=== PATIENT | female | born 1950 | race Caucasian/White ===

== ENCOUNTER → 2017-08-07 10:00 | Outpatient (CLI) | payer MEDICARE, MEDICAID, SELFPAY ==
--- NOTE | 2017-08-07 | DI.RAD.S_ITS ---
PROCEDURE: XR CHEST 2V INDICATIONS: PNEUMONIA TECHNIQUE: 2 views of the chest were acquired. COMPARISON: 07/27/2017 FINDINGS: Surgical changes and devices: None. Lungs and pleura: No pleural effusions or pneumothorax. There is minimal patchy radiodensity in the right upper lobe consistent with residual of prior pneumonia. Pulmonary vascularity is normal. Mediastinum: Mediastinal contours are normal. Heart size is normal. Bones and chest wall: No suspicious bony abnormalities. Thoracic spondylosis. Soft tissues appear unremarkable. IMPRESSION: 1. Near-complete resolution of prior right upper lobe pneumonia and interval resolution of mild pulmonary edema or diffuse interstitial infiltrate. Further followup in 6-8 weeks is suggested to ensure complete resolution. Dictated by: Poli Fong M.D. on 08/07/2017 at 10:31 Approved by: Poli Fong M.D. on 08/07/2017 at 10:34
== END ==
PROVIDERS: Family Provider Nurse Practitioner Family; PCP Nurse Practitioner Family; Visit Provider Nurse Practitioner Family
DX: J18.9 Pneumonia, unspecified organism (principal)
CPT/HCPCS: 71046

== ENCOUNTER → 2017-10-05 10:23 | Outpatient (CLI) | payer MEDICARE, MEDICAID, SELFPAY ==
--- NOTE | 2017-10-05 | DI.RAD.S_ITS ---
PROCEDURE: XR CHEST 2V INDICATIONS: pneumonia TECHNIQUE: 2 views of the chest were acquired. COMPARISON: [facility], CR, XR CHEST 1V, 07/27/2017, 19:54. [facility], CR, XR CHEST 2V, 08/07/2017, 10:05. FINDINGS: Surgical changes and devices: None. Lungs and pleura: No pleural effusions or pneumothorax. Ill-defined right upper lobe pulmonary densities superior unchanged and mild bilateral perihilar interstitial prominence is again noted. No septal lines. Mediastinum: Mediastinal contours are normal. Heart size is normal. Bones and chest wall: No suspicious bony abnormalities. Thoracic spondylosis. Soft tissues appear unremarkable. IMPRESSION: Incomplete resolution of patchy right upper lobe pulmonary densities. Noncontrast CT chest suggested for further evaluation. Dictated by: Poli Fong M.D. on 10/05/2017 at 10:58 Approved by: Poli Fogn M.D. on 10/05/2017 at 11:01
== END ==
PROVIDERS: Family Provider Nurse Practitioner Family; PCP Nurse Practitioner Family; Visit Provider Nurse Practitioner Family
DX: J18.9 Pneumonia, unspecified organism (principal)
CPT/HCPCS: 71046

== ENCOUNTER → 2019-05-23 14:27 | Outpatient (CLI) | payer MEDICARE, MEDICAID, SELFPAY ==
[2019-05-23 15:34] LABS: Add Manual Diff / Slide Review NO; Basophils Absolute Auto 100 /uL (0-100); Basophils Percent Auto 1.3 % (0-2); Eosinophils Absolute Auto 100 /uL (0-450); Eosinophils Percent Auto 2.5 % (2-4); Hematocrit 38.4 % (36-46); Hemoglobin 12.8 g/dL (12.0-16.0); Lymphocytes Absolute Auto 1600 /uL (1100-4500); Lymphocytes Percent Auto 33.4 % (25-40); Mean Corpuscular HGB Conc 33.4 % (30-36); Mean Corpuscular Hemoglobin 31.9 PG (26-34); Mean Corpuscular Volume 95.8 fL (80-100); Monocytes Absolute Auto 300 /uL (0-900); Neutrophils Absolute Auto 2700 /uL (1500-7000); Neutrophils Percent Auto 55.8 % (50-75); Platelet Count 254 X10^3/uL (150-400); Red Blood Cell Count 4.01 X10^6/uL (4.0-5.2); Red Cell Distribution Width 13.6 % (11.6-14.8); White Blood Cell Count 4.8 X10^3/uL (4.5-11.0)
[2019-05-23 15:55] LABS: Alanine Aminotransferase 15 IU/L (<35); Albumin 4.4 g/dL (3.5-5.0); Albumin Globulin Ratio 1.3 (1.0-2.8); Alkaline Phosphatase 80 U/L (38-126); Aspartate Aminotransferase 22 IU/L (14-36); Bilirubin Total 0.4 mg/dL (0.2-1.3); Blood Urea Nitrogen 21 mg/dL (7-17); Calcium 9.4 mg/dL (8.4-10.2); Carbon Dioxide 27 mmol/L (22-32); Chloride 104 mmol/L (98-107); Cholesterol 200 mg/dL (140-199); Estimated Glomerular Filt Rate 55.1 mL/min (>60); Globulin 3.5 g/dL (1.7-4.1); Glucose 120 mg/dL (80-110); HDL Cholesterol 42 mg/dL (40-60); HEMOLYSIS < 15 (0-50); LDL Cholesterol Calculated 125 mg/dL (<100); Potassium 4.1 mmol/L (3.4-5.1); Sodium 141 mmol/L (137-145); Total Protein 7.9 g/dL (6.3-8.2); Triglycerides 164 mg/dL (35-150)
[2019-05-23 16:33] LABS: Thyroid Stimulating Hormone 1.47 uIU/mL (0.47-4.68)
== END ==
PROVIDERS: Family Provider Nurse Practitioner Family; PCP Nurse Practitioner Family; Referring Provider Nurse Practitioner Family; Visit Provider Nurse Practitioner Family
DX: R53.83 Other fatigue (principal); R60.9 Edema, unspecified; I35.8 Other nonrheumatic aortic valve disorders; E03.9 Hypothyroidism, unspecified; R06.00 Dyspnea, unspecified
CPT/HCPCS: 36415; 80053; 80061; 84443; 85025

== ENCOUNTER → 2020-06-04 08:11 | Outpatient (CLI) | payer MEDICARE, MEDICAID, SELFPAY ==
[2020-06-04] MEDS: COVID-19 VACC, Ad26(JANSSEN)/PF 0.5 ML IM (08:20)
== END ==
PROVIDERS: Family Provider Nurse Practitioner Family; PCP Registered Nurse Diabetes Educator; Visit Provider Internal Medicine
DX: Z23 Encounter for immunization (principal)
CPT/HCPCS: 0031A; 91303

== ENCOUNTER → 2023-02-24 07:25 | Outpatient (CLI) | payer MEDICARE, MEDICAID, SELFPAY ==
[2023-02-24 08:12] LABS: Add Manual Diff / Slide Review NO; Basophils Absolute Auto 200 /uL (0-100); Basophils Percent Auto 3.7 % (0-2); Eosinophils Absolute Auto 100 /uL (0-450); Eosinophils Percent Auto 2.9 % (2-4); Hematocrit 38.5 % (36-46); Hemoglobin 12.9 g/dL (12.0-16.0); Lymphocytes Absolute Auto 1300 /uL (1100-4500); Lymphocytes Percent Auto 31.4 % (25-40); Mean Corpuscular HGB Conc 33.4 % (30-36); Mean Corpuscular Hemoglobin 31.9 PG (26-34); Mean Corpuscular Volume 95.6 fL (80-100); Monocytes Absolute Auto 400 /uL (0-900); Monocytes Percent Auto 8.4 % (3-14); Neutrophils Absolute Auto 2200 /uL (1500-7000); Neutrophils Percent Auto 53.6 % (50-75); Platelet Count 247 X10^3/uL (150-400); Red Blood Cell Count 4.03 X10^6/uL (4.0-5.2); White Blood Cell Count 4.2 X10^3/uL (4.5-11.0)
[2023-02-24 08:20] LABS: Hemoglobin A1C% w Est Avg Glu 5.6 % (4.0-6.0)
[2023-02-24 08:34] LABS: Alanine Aminotransferase 24 IU/L (<35); Albumin 4.2 g/dL (3.5-5.0); Albumin Globulin Ratio 1.4 (1.0-2.8); Alkaline Phosphatase 73 U/L (38-126); Aspartate Aminotransferase 27 IU/L (14-36); BUN Creatinine Ratio 23.1 (6-22); Bilirubin Total 0.6 mg/dL (0.2-1.3); Blood Urea Nitrogen 21 mg/dL (7-17); Calcium 9.5 mg/dL (8.4-10.2); Carbon Dioxide 26 mmol/L (22-32); Chloride 102 mmol/L (98-107); Cholesterol 216 mg/dL (140-199); Estimated Glomerular Filt Rate > 60 mL/min (>60); Globulin 3.1 g/dL (1.7-4.1); Glucose 104 mg/dL (80-110); HDL Cholesterol 50 mg/dL (40-60); HEMOLYSIS < 15 (0-50); LDL Cholesterol Calculated 145 mg/dL (<100); Potassium 4.5 mmol/L (3.4-5.1); Sodium 138 mmol/L (137-145); Total Protein 7.3 g/dL (6.3-8.2); Triglycerides 104 mg/dL (35-150)
[2023-02-24 09:03] LABS: TSH w/ Reflex to FT4 1.74 uIU/mL (0.47-4.68)
[2023-02-24 11:34] LABS: Creatinine Urine Random 188.7 mg/dL
[2023-02-24 11:37] LABS: Microalbumi Creatinin Ratio Ur 3.7 ug/mg CR (<30); Microalbumin Urine Random 0.7 mg/dL (0-1.6)
== END ==
PROVIDERS: Family Provider Nurse Practitioner Family; PCP Registered Nurse Diabetes Educator; Referring Provider Registered Nurse Diabetes Educator; Visit Provider Registered Nurse Diabetes Educator
DX: I10 Essential (primary) hypertension (principal); R73.01 Impaired fasting glucose; E78.5 Hyperlipidemia, unspecified; G93.39 Other post infection and related fatigue syndromes; R94.4 Abnormal results of kidney function studies
CPT/HCPCS: 36415; 80053; 80061; 82043; 82570; 83036; 84443; 85025

== ENCOUNTER 2023-09-11 09:45 | Outpatient (RCR) | payer MEDICARE, MEDICAID, SELFPAY ==
--- NOTE | 2023-07-07 16:45 | PT.OPPOC ---
Physical, Occupational & Speech Therapy At [facility] Current Diagnoses Pain in other specified joint (07/07/23) Low back pain, unspecified (07/07/23) Muscle weakness (generalized) (07/07/23) Stress incontinence (female) (male) (07/07/23) Urge incontinence (07/07/23) Visit Care Team Role Provider Type OCTAVIA Rdz Family Provider Non-Staff Specialty: Medical Address: [address] [place] [address], [facility] [address], [place], [address] Email: OCTAVIA Harmon Attending Provider Advanced Client Account Specialist Primary Care Provider Referring Provider Specialty: Medical Address: [address] [place] [address], [id number] Email: [email or web address] Plan Of Care PT-OP-T Assessment and Plan Start: 06/27/23 18:29 Freq: Status: Active Protocol: Document 07/07/23 10:38 LRN (Rec: 07/07/23 11:23 LRN [id number]) Physical Therapy Assessment Rehab Potential Rehabilitation Potential Good Evaluation Complexity Number of Personal Factors/Comorbidities 3 or More Number of Body Systems Impaired 4 or More Clinical Presentation at Evaluation Evolving Impairments Impairments Activity Tolerance,Pain, Posture,ROM,Soft Tissue Mobility,Strength,Transfers Other Impairments Urge Urinary leakage with temperature change warm to cold, opening refrigerator, walking inside to outside the house. Goals Low back pain Impairment Low back pain Impairment LBP rated 3/10, and pt is not able to maintain core rotational stability with LE movements. Short Term Goal (STG) Pt will be educated in proper sit/stand posture and LB mobility exercises. STG Duration 6 wks-08/18/23 Manager Hi Goal (LTG) Improve core stability/ strength with pt able to walk from inside to outside the house while maintaining urinary continence with walking. LTG Duration 12 wks-09/29/23 Three Impairment Aggrevator urinary incontinence (changes in temperature) Short Term Goal (STG) Pt will be educated in urge deference technique. STG Duration 1 wk-07/14/23 Half-Way Goal (LTG) Pt will be able to delay urination until she can sit to void, when walking into a different temperature room in her house. LTG Duration 12 wks-09/29/23 Two Impairment PF deep muscle weakness (2/5) Impairment Endurance hold of 3 secs before starting to fatigue. Short Term Goal (STG) Improve PF endurance with ability to hold PF contraction 5-6 secs. STG Duration 6 wks-08/18/23 Half-Way Goal (LTG) Improve PF endurance with ability to hold PF contraction 10 secs and will be able to open her refrigerator door and walk to the bathroom without urinary leakage. LTG Duration 12 wks-09/29/23 One Impairment Pt lacks an independent self care HEP. Short Term Goal (STG) Pt educated in proper transfers to lessen core abdominal pressure. STG Duration 6 wks-08/18/23 Manager Hi Goal (LTG) Pt will be independent in a self care HEP for PF strengthening. LTG Duration 12 wks-09/29/23 Assessment Summary Assessment Pt is a 72 yo female who presents with PF weakness and a rectocele (grade 3), and cystocele, decreased core/hip strength and mobility. She tends to breath hold with transfers and is not able to perform a proper deep breath; therefore has poor core pressure management. She has had some relief her her urgency with temperature changes with back treatments; therefore correcting for back pain will probably be beneficial in improving her level of continence. Her rectocele is not bulging out of vaginal canal in supine or standing or with cough at this time. She is able to draw her bladder and rectal tissues upward with a PF contraction. She denies a feeling of falling out or of GI involvement (constipation). She must have had GI difficulties in the past because she has a squatty potty and has understanding of best positioning for bowel movement voiding. It is expected the the pt rehab will be prolonged due to the chronicity of her dysfunction. The patient will benefit from skilled physical therapy to achieve the above stated goals. Physical Therapy Plan Frequency and Duration Frequency of Treatment 1x/Week Duration of treatment (weeks) 12 Plan of Care Start Date 07/07/23 Plan of Care End Date 09/29/23 Therapeutic Interventions Therapeutic Interventions Home Exercise Program,Manual Therapy,Neuromuscular Re- education,Self-Care/Home Management,Soft Tissue Mobilization,Therapeutic Activities,Therapeutic Exercises Modalities Electric Stimulation Next Visit Focus/Plan Next Note Type Treatment Note Next Visit Plan Next: Education in bladder retraining with urge deference technique, proper deep breathing, further assess ( prone) LBP/check hip ext. reduction of intra-abdominal pressure with transfers and ADLs. Exers: proper Kegel (on wedge ) long holds, without use of substitute muscles, core strengthening (focus on rotation), normalize hip strength symmetry. Manual: Reduce LBP. Modalities if needed. POC: Pt education, Manual therapy. ?Biofeedback with vaginal sensor. Therapeutic Exercises, Therapeutic Activities, Neuromuscular Reeducation. Plan of Care Dates Plan of Care Start Date 07/07/23 Plan of Care End Date 09/29/23 Electronically Signed by: Viola De Leon, PT 07/07/23 9036 If you are in agreement with this Plan of Care, please return a signed and dated copy. I have reviewed this Plan of Care and certify that the skilled therapy services above are required to meet the patient?s needs. Physician Signature Date Printed Name and Credentials Clinical Instructor Signature Printed Name and Credentials
--- NOTE | 2023-07-07 17:18 | PT.OIE ---
Current Diagnoses Pain in other specified joint (07/07/23) Low back pain, unspecified (07/07/23) Muscle weakness (generalized) (07/07/23) Stress incontinence (female) (male) (07/07/23) Urge incontinence (07/07/23) Past Medical History (Last Reviewed 05/12/23 @ 15:34 by OCTAVIA Harmon) Acquired involutional ptosis of both eyelids Dyslipidemia Essential hypertension Hip pain Impaired fasting blood sugar Low back pain Obesity Other low back pain Recurrent cold sores Visit Care Team Role Provider Type OCTAVIA Rdz Family Provider Non-Staff Specialty: Medical Address: [address] [place] [address], [facility] [address], [place], [address] Email: OCTAVIA Harmon Attending Provider Advanced Group Account Director Primary Care Provider Referring Provider Specialty: Medical Address: [address] [place] [address], [address] Email: [email or web address] Physical Therapy Initial Evaluation PT-OP-A Visit Information Start: 06/27/23 18:29 Freq: Status: Active Protocol: Document 07/07/23 10:38 LRN (Rec: 07/07/23 11:23 CLARY [id number]) Out-Patient Physical Therapy Visit Information Visit Information Visit Type Initial Evaluation Visit Start Time 10:38 Visit Stop Time 11:20 Visit Number 1 Evaluation Information Evaluation Date 07/07/23 Precautions Precautions Per intake form: LATEX ALLERGY (if on for extended period of time), arthritis, depression, dizziness, hep B, L eye PVD, cannabis smoker. PT-OP-B Current Condition Start: 06/27/23 18:29 Freq: Status: Active Protocol: Document 07/07/23 10:38 LRN (Rec: 07/07/23 11:23 LRN [id number]) Current Condition History of Current Condition Onset Date 1 month worsened Current Complaints Having more urinary leakage History of Current Condition Pt reports having urinary leakage for 10 or more years, but in the past month has had worsening of urinary leakage when walking from inside to outside of house or opening the refridgerator door has to urinate immediately. Has had accupuncture for back pain and for awhile was helping with urgent bladder for one week at a time but last time helped for only a few days. Won't wear urinary pads because doesn't like how it bunches up . Instead of panties wears leggings. Pt reports living independently in bottom 1/2 of daughters house. Prior Treatments and Tests Has done intermittent Kegels, doesn't remember who taught her. Treatment Goals Patient/Caregiver Goals Pt goal is to be able to improve maintain urinary continence with opening refig door, walking into a different temp room, or going from inside to outside the house. Personal Factors Other Personal Factors That May Effect LATEX ALLERGY (if on for Therapy/Recovery extended period of time), arthritis, depression, dizziness. PT-OP-C Subjective Start: 06/27/23 18:29 Freq: Status: Active Protocol: Document 07/07/23 10:38 LRN (Rec: 07/07/23 11:23 LRN [id number]) Patient Questionnaires Pelvic Pain and Urgency/Frequency Patient Symptom Scale Pelvic Pain Score 9 OP-PT Pain Assessment Pain Assessment Grid Paper Pain Assessment Grid Completed Yes Location Lateral hips Pain Location Details Lateral hips Intensity 3 Scale Used Numeric (0 - 10) Low back Pain Location Details Lower lumbar and sacral area Intensity 3 Scale Used Numeric (0 - 10) PT-OP-I Pelvic Floor Start: 06/27/23 18:29 Freq: Status: Active Protocol: Document 07/07/23 10:38 LRN (Rec: 07/07/23 11:23 LRN [id number]) Pelvic Floor Assessment Urine Urinary Symptoms Falling Out Feeling/Heavy Other Urinary Symptoms Several years ago felt bladder falling out of vagina, couldn 't afford to have it fixed. Leakage Size Large Leaks Per Day 3-5 Voiding Frequency 6-8x/day Nocturia 1-2x Pads Used In 24 Hours Doesn't use pads. Bowel Other Bowel Symptoms Denies bowel symptoms. Notes normal stool Bowel Movement Frequency 1-2x/day Pelvic Clock Pelvic Clock Other Pelvic Clock 6, tenderness externally. Prolapse Cystocele Grade 2 Urethrocele Grade 3 Perineal Descent Bearing Present Contraction Ability Voluntary Contraction Moderate Voluntary Relaxation Moderate Manual Muscle Testing Left 2 Manual Muscle Testing Right 2 Manual Muscle Testing Anterior 2 Manual Muscle Testing Posterior 2 Muscle Endurance (Seconds) 3 Number of Quick Contractions In 10 9 Seconds Comments Pelvic Floor Comments Superficial PF muscle strength is 3/5 Deep PF muscle strength is 1-2 /5. PT-OP-J Posture/Palpation/Skin Start: 06/27/23 18:29 Freq: Status: Active Protocol: Document 07/07/23 10:38 LRN (Rec: 07/07/23 11:23 LRN [id number]) Posture Evaluation Position Standing Head/C-Spine Posture Forward Head T-Spine Posture Increased Kyphosis L-Spine Posture Decreased Lordosis,Shifted Left Shoulder Posture (L) Rounded,(L) Forward Pelvis Posture Anteriorly Tilted,(L) Iliac Crest Superior Comments Posture Comments Lumbar spine shifted left at L5-S1. PT-OP-K Range of Motion Start: 06/27/23 18:29 Freq: Status: Active Protocol: Document 07/07/23 10:38 LRN (Rec: 07/07/23 11:23 LRN [id number]) Lumbar Spine Range of Motion Lumbar Spine Active Degrees Testing Position Standing Flexion 90 Extension 22 Rotation Left 5 Rotation Right 5 Lateral Flexion Left 18 Lateral Flexion Right 13 Hip Goniometric Range of Motion Hip Right Passive Testing Position Supine Internal Rotation 45 External Rotation 65 Left Passive Testing Position Supine Internal Rotation 40 External Rotation 55 PT-OP-M Strength Start: 06/27/23 18:29 Freq: Status: Active Protocol: Document 07/07/23 10:38 LRN (Rec: 07/07/23 11:23 LRN [id number]) Hip Strength Hip Manual Muscle Testing Right Flexion (L2) 4 Good Abduction 3 Fair Adduction 2- Poor- External Rotation 5 Normal Internal Rotation 5 Normal Comments Strength is 5/5 except as indicated above. Left Flexion (L2) 4+ Good+ Abduction 2 Poor Adduction 2 Poor External Rotation 3 Fair Internal Rotation 5 Normal Comments Strength is 5/5 except as indicated above. PT-OP-Q Treatments Start: 06/27/23 18:29 Freq: Status: Active Protocol: Document 07/07/23 10:38 LRN (Rec: 07/07/23 11:23 LRN [id number]) Self-Care/Home Management Treatment Education Patient Education Home Exercise Program Other Education Discussed results of evaluation, goals, and plan of care (POC) with pt, discussed attendance/cx/dns policy; pt agreeable to goals, attendance /cx/dns policy and POC. Activities Self-Care/Home Management Activities Issued & reviewed HEP: Yoav ex's (pillows under hips) and discussed exercise Long Holds and Aggravators. PT-OP-T Assessment and Plan Start: 06/27/23 18:29 Freq: Status: Active Protocol: Document 07/07/23 10:38 LRN (Rec: 07/07/23 11:23 LRN [id number]) Physical Therapy Assessment Rehab Potential Rehabilitation Potential Good Evaluation Complexity Number of Personal Factors/Comorbidities 3 or More Number of Body Systems Impaired 4 or More Clinical Presentation at Evaluation Evolving Impairments Impairments Activity Tolerance,Pain, Posture,ROM,Soft Tissue Mobility,Strength,Transfers Other Impairments Urge Urinary leakage with temperature change warm to cold, opening refrigerator, walking inside to outside the house. Goals Low back pain Impairment Low back pain Impairment LBP rated 3/10, and pt is not able to maintain core rotational stability with LE movements. Short Term Goal (STG) Pt will be educated in proper sit/stand posture and LB mobility exercises. STG Duration 6 wks-08/18/23 Private Duty Aide Goal (LTG) Improve core stability/ strength with pt able to walk from inside to outside the house while maintaining urinary continence with walking. LTG Duration 12 wks-09/29/23 Three Impairment Aggrevator urinary incontinence (changes in temperature) Short Term Goal (STG) Pt will be educated in urge deference technique. STG Duration 1 wk-07/14/23 Private Duty Aide Goal (LTG) Pt will be able to delay urination until she can sit to void, when walking into a different temperature room in her house. LTG Duration 12 wks-09/29/23 Two Impairment PF deep muscle weakness (2/5) Impairment Endurance hold of 3 secs before starting to fatigue. Short Term Goal (STG) Improve PF endurance with ability to hold PF contraction 5-6 secs. STG Duration 6 wks-08/18/23 Private Duty Aide Goal (LTG) Improve PF endurance with ability to hold PF contraction 10 secs and will be able to open her refrigerator door and walk to the bathroom without urinary leakage. LTG Duration 12 wks-09/29/23 One Impairment Pt lacks an independent self care HEP. Short Term Goal (STG) Pt educated in proper transfers to lessen core abdominal pressure. STG Duration 6 wks-08/18/23 Private Duty Aide Goal (LTG) Pt will be independent in a self care HEP for PF strengthening. LTG Duration 12 wks-09/29/23 Assessment Summary Assessment Pt is a 72 yo female who presents with PF weakness and a rectocele (grade 3), and cystocele, decreased core/hip strength and mobility. She tends to breath hold with transfers and is not able to perform a proper deep breath; therefore has poor core pressure management. She has had some relief her her urgency with temperature changes with back treatments; therefore correcting for back pain will probably be beneficial in improving her level of continence. Her rectocele is not bulging out of vaginal canal in supine or standing or with cough at this time. She is able to draw her bladder and rectal tissues upward with a PF contraction. She denies a feeling of falling out or of GI involvement (constipation). She must have had GI difficulties in the past because she has a squatty potty and has understanding of best positioning for bowel movement voiding. It is expected the the pt rehab will be prolonged due to the chronicity of her dysfunction. The patient will benefit from skilled physical therapy to achieve the above stated goals. Physical Therapy Plan Frequency and Duration Frequency of Treatment 1x/Week Duration of treatment (weeks) 12 Plan of Care Start Date 07/07/23 Plan of Care End Date 09/29/23 Therapeutic Interventions Therapeutic Interventions Home Exercise Program,Manual Therapy,Neuromuscular Re- education,Self-Care/Home Management,Soft Tissue Mobilization,Therapeutic Activities,Therapeutic Exercises Modalities Electric Stimulation Next Visit Focus/Plan Next Note Type Treatment Note Next Visit Plan Next: Education in bladder retraining with urge deference technique, proper deep breathing, further assess ( prone) LBP/check hip ext. reduction of intra-abdominal pressure with transfers and ADLs. Exers: proper Kegel (on wedge ) long holds, without use of substitute muscles, core strengthening (focus on rotation), normalize hip strength symmetry. Manual: Reduce LBP. Modalities if needed. POC: Pt education, Manual therapy. ?Biofeedback with vaginal sensor. Therapeutic Exercises, Therapeutic Activities, Neuromuscular Reeducation.
--- NOTE | 2023-07-14 12:24 | PT.OTN ---
Current Diagnoses Pain in other specified joint (07/14/23) Low back pain, unspecified (07/14/23) Muscle weakness (generalized) (07/14/23) Stress incontinence (female) (male) (07/14/23) Urge incontinence (07/14/23) Physical Therapy Treatment Note PT-OP-A Visit Information Start: 06/27/23 18:29 Freq: Status: Active Protocol: Document 07/14/23 11:23 LRN (Rec: 07/14/23 12:19 LRN [id number]) Out-Patient Physical Therapy Visit Information Visit Information Visit Type Treatment Note Visit Start Time 11:23 Visit Stop Time 12:04 Visit Number 2 Evaluation Information Evaluation Date 07/07/23 Precautions Precautions Per intake form: LATEX ALLERGY (if on for extended period of time), arthritis, depression, dizziness, hep B, L eye PVD, cannabis smoker. PT-OP-B Current Condition Start: 06/27/23 18:29 Freq: Status: Active Protocol: Document 07/07/23 10:38 LRN (Rec: 07/07/23 11:23 LRN [id number]) Current Condition History of Current Condition Onset Date 1 month worsened Current Complaints Having more urinary leakage History of Current Condition Pt reports having urinary leakage for 10 or more years, but in the past month has had worsening of urinary leakage when walking from inside to outside of house or opening the refridgerator door has to urinate immediately. Has had accupuncture for back pain and for awhile was helping with urgent bladder for one week at a time but last time helped for only a few days. Won't wear urinary pads because doesn't like how it bunches up . Instead of panties wears leggings. Pt reports living independently in bottom 1/2 of daughters house. Prior Treatments and Tests Has done intermittent Kegels, doesn't remember who taught her. Treatment Goals Patient/Caregiver Goals Pt goal is to be able to improve maintain urinary continence with opening refig door, walking into a different temp room, or going from inside to outside the house. Personal Factors Other Personal Factors That May Effect LATEX ALLERGY (if on for Therapy/Recovery extended period of time), arthritis, depression, dizziness. PT-OP-C Subjective Start: 06/27/23 18:29 Freq: Status: Active Protocol: Document 07/14/23 11:23 LRN (Rec: 07/14/23 12:19 LRN [id number]) OP-PT Subjective Patient Comments Patient Comments Improvement in urgency with Accupuncture for LB 2 days ago . Also noticed improvement with Kegels. PT-OP-I Pelvic Floor Start: 06/27/23 18:29 Freq: Status: Active Protocol: Document 07/07/23 10:38 LRN (Rec: 07/07/23 11:23 LRN [id number]) Pelvic Floor Assessment Urine Urinary Symptoms Falling Out Feeling/Heavy Other Urinary Symptoms Several years ago felt bladder falling out of vagina, couldn 't afford to have it fixed. Leakage Size Large Leaks Per Day 3-5 Voiding Frequency 6-8x/day Nocturia 1-2x Pads Used In 24 Hours Doesn't use pads. Bowel Other Bowel Symptoms Denies bowel symptoms. Notes normal stool Bowel Movement Frequency 1-2x/day Pelvic Clock Pelvic Clock Other Pelvic Clock 6, tenderness externally. Prolapse Cystocele Grade 2 Urethrocele Grade 3 Perineal Descent Bearing Present Contraction Ability Voluntary Contraction Moderate Voluntary Relaxation Moderate Manual Muscle Testing Left 2 Manual Muscle Testing Right 2 Manual Muscle Testing Anterior 2 Manual Muscle Testing Posterior 2 Muscle Endurance (Seconds) 3 Number of Quick Contractions In 10 9 Seconds Comments Pelvic Floor Comments Superficial PF muscle strength is 3/5 Deep PF muscle strength is 1-2 /5. PT-OP-J Posture/Palpation/Skin Start: 06/27/23 18:29 Freq: Status: Active Protocol: Document 07/07/23 10:38 LRN (Rec: 07/07/23 11:23 LRN [id number]) Posture Evaluation Position Standing Head/C-Spine Posture Forward Head T-Spine Posture Increased Kyphosis L-Spine Posture Decreased Lordosis,Shifted Left Shoulder Posture (L) Rounded,(L) Forward Pelvis Posture Anteriorly Tilted,(L) Iliac Crest Superior Comments Posture Comments Lumbar spine shifted left at L5-S1. PT-OP-K Range of Motion Start: 06/27/23 18:29 Freq: Status: Active Protocol: Document 07/07/23 10:38 LRN (Rec: 07/07/23 11:23 LRN [id number]) Lumbar Spine Range of Motion Lumbar Spine Active Degrees Testing Position Standing Flexion 90 Extension 22 Rotation Left 5 Rotation Right 5 Lateral Flexion Left 18 Lateral Flexion Right 13 Hip Goniometric Range of Motion Hip Right Passive Testing Position Supine Internal Rotation 45 External Rotation 65 Left Passive Testing Position Supine Internal Rotation 40 External Rotation 55 PT-OP-M Strength Start: 06/27/23 18:29 Freq: Status: Active Protocol: Document 07/07/23 10:38 LRN (Rec: 07/07/23 11:23 LRN [id number]) Hip Strength Hip Manual Muscle Testing Right Flexion (L2) 4 Good Abduction 3 Fair Adduction 2- Poor- External Rotation 5 Normal Internal Rotation 5 Normal Comments Strength is 5/5 except as indicated above. Left Flexion (L2) 4+ Good+ Abduction 2 Poor Adduction 2 Poor External Rotation 3 Fair Internal Rotation 5 Normal Comments Strength is 5/5 except as indicated above. PT-OP-Q Treatments Start: 06/27/23 18:29 Freq: Status: Active Protocol: Document 07/14/23 11:23 LRN (Rec: 07/14/23 12:19 LRN [id number]) Therapeutic Exercises Supine Exercises Deep Breathing Supine Exercise Name Deep Breathing, pt leaves hands under her hips for control of BP. Reps/Minutes 2' Sitting Exercises Deep Breathing Reps/Minutes 4' Comments Cuing to move from abdomen and to keep chest still. Therapeutic Activity Therapeutic Activity Transfers w/Breath/Kegel Name Sit<>Stand coordinating w/ breathwork/Kegel Reps/Minutes 5' Comments Constant cuing needed for Kegel Transfers w/Breath Name Sup>Sidelie>sit<>stand coordinating w/breathwork Reps/Minutes 11' Comments Constant cuing needed for exhale with transitions. Urge Deference training Reps/Minutes 8' Comments Educated and discussed at length Urge deference Technique. Self-Care/Home Management Treatment Education Other Education Discussed at length completion of bladder diary and bowel types. Activities Self-Care/Home Management Activities Issued handouts for Bladder diary and Bowel types. Issued & reviewed Urge deference technique handout. PT-OP-T Assessment and Plan Start: 06/27/23 18:29 Freq: Status: Active Protocol: Document 07/14/23 11:23 LRN (Rec: 07/14/23 12:19 LRN [id number]) Physical Therapy Assessment Goals Low back pain Impairment Low back pain Impairment LBP rated 3/10, and pt is not able to maintain core rotational stability with LE movements. Short Term Goal (STG) Pt will be educated in proper sit/stand posture and LB mobility exercises. STG Duration 6 wks-08/18/23 [facility] Living Goal (LTG) Improve core stability/ strength with pt able to walk from inside to outside the house while maintaining urinary continence with walking. LTG Duration 12 wks-09/29/23 Three Impairment Aggrevator urinary incontinence (changes in temperature) Short Term Goal (STG) Pt will be educated in urge deference technique. 07/14/23: Pt educated in urge deference technique STG Duration 1 wk-07/14/23 (07/14/23: MET GOAL) Senior Living Goal (LTG) Pt will be able to delay urination until she can sit to void, when walking into a different temperature room in her house. LTG Duration 12 wks-09/29/23 Two Impairment PF deep muscle weakness (2/5) Impairment Endurance hold of 3 secs before starting to fatigue. Short Term Goal (STG) Improve PF endurance with ability to hold PF contraction 5-6 secs. STG Duration 6 wks-08/18/23 [employer] [employer] Goal (LTG) Improve PF endurance with ability to hold PF contraction 10 secs and will be able to open her refrigerator door and walk to the bathroom without urinary leakage. LTG Duration 12 wks-09/29/23 One Impairment Pt lacks an independent self care HEP. Short Term Goal (STG) Pt educated in proper transfers to lessen core abdominal pressure. 07/14/23: Pt educated in reduction of intra-abdominal pressure with transfers and ADLs with breathwork/Kegel. STG Duration 6 wks-08/18/23 (07/14/23: MET GOAL) [employer] [employer] [facility] Goal (LTG) Pt will be independent in a self care HEP for PF strengthening. LTG Duration 12 wks-09/29/23 Assessment Summary Assessment Pt is a 72 yo female who presents with PF weakness (she is able to draw her bladder and rectal tissues upward with a Kegel), a rectocele (grade 3), and cystocele; decreased core/hip strength and mobility , has squatty potty from past. Today the pt demonstrates improved Deep breathing ability, better in supine than sit. Training for coordination of breathing and Kegel with transfers needs review/monitoring. Physical Therapy Plan Frequency and Duration Frequency of Treatment 1x/Week Duration of treatment (weeks) 12 Plan of Care Start Date 07/07/23 Plan of Care End Date 09/29/23 Next Visit Focus/Plan Next Note Type Treatment Note Next Visit Plan Next: Assess response to use of urge deference technique and reduction of intra- abdominal pressure with transfers and ADLs with breathwork/Kegel. Further assess (prone) LBP/check hip ext. Exers: proper Kegel (on wedge ) long holds, without use of substitute muscles, core strengthening (focus on rotation), normalize hip strength symmetry. Education: proper sit/stand posture and LB mobility exercises. Manual: Reduce LBP, use of MH found to be helpful. Other Modalities if needed. POC: Pt education, Manual therapy. ?Biofeedback with vaginal sensor. Therapeutic Exercises, Therapeutic Activities, Neuromuscular Reeducation.
--- NOTE | 2023-07-24 16:41 | PT.OTN ---
Current Diagnoses Pain in other specified joint (07/24/23) Low back pain, unspecified (07/24/23) Muscle weakness (generalized) (07/24/23) Stress incontinence (female) (male) (07/24/23) Urge incontinence (07/24/23) Physical Therapy Treatment Note PT-OP-A Visit Information Start: 06/27/23 18:29 Freq: Status: Active Protocol: Document 07/24/23 11:22 LRN (Rec: 07/24/23 12:16 LRN [id number]) Out-Patient Physical Therapy Visit Information Visit Information Visit Type Treatment Note Visit Start Time 11:22 Visit Stop Time 12:12 Visit Number 3 Evaluation Information Evaluation Date 07/07/23 Precautions Precautions Per intake form: LATEX ALLERGY (if on for extended period of time), arthritis, depression, dizziness, hep B, L eye PVD, cannabis smoker. PT-OP-B Current Condition Start: 06/27/23 18:29 Freq: Status: Active Protocol: Document 07/07/23 10:38 LRN (Rec: 07/07/23 11:23 LRN [id number]) Current Condition History of Current Condition Onset Date 1 month worsened Current Complaints Having more urinary leakage History of Current Condition Pt reports having urinary leakage for 10 or more years, but in the past month has had worsening of urinary leakage when walking from inside to outside of house or opening the refridgerator door has to urinate immediately. Has had accupuncture for back pain and for awhile was helping with urgent bladder for one week at a time but last time helped for only a few days. Won't wear urinary pads because doesn't like how it bunches up . Instead of panties wears leggings. Pt reports living independently in bottom 1/2 of daughters house. Prior Treatments and Tests Has done intermittent Kegels, doesn't remember who taught her. Treatment Goals Patient/Caregiver Goals Pt goal is to be able to improve maintain urinary continence with opening refig door, walking into a different temp room, or going from inside to outside the house. Personal Factors Other Personal Factors That May Effect LATEX ALLERGY (if on for Therapy/Recovery extended period of time), arthritis, depression, dizziness. PT-OP-C Subjective Start: 06/27/23 18:29 Freq: Status: Active Protocol: Document 07/24/23 11:22 LRN (Rec: 07/24/23 12:16 LRN [id number]) OP-PT Subjective Patient Comments Patient Comments Did urge technique when remembering and didn't leak when used the technique except for a couple of times. Didn' t leave her squatty potty in bathroom because she tripped over it. PT-OP-I Pelvic Floor Start: 06/27/23 18:29 Freq: Status: Active Protocol: Document 07/07/23 10:38 LRN (Rec: 07/07/23 11:23 LRN [id number]) Pelvic Floor Assessment Urine Urinary Symptoms Falling Out Feeling/Heavy Other Urinary Symptoms Several years ago felt bladder falling out of vagina, couldn 't afford to have it fixed. Leakage Size Large Leaks Per Day 3-5 Voiding Frequency 6-8x/day Nocturia 1-2x Pads Used In 24 Hours Doesn't use pads. Bowel Other Bowel Symptoms Denies bowel symptoms. Notes normal stool Bowel Movement Frequency 1-2x/day Pelvic Clock Pelvic Clock Other Pelvic Clock 6, tenderness externally. Prolapse Cystocele Grade 2 Urethrocele Grade 3 Perineal Descent Bearing Present Contraction Ability Voluntary Contraction Moderate Voluntary Relaxation Moderate Manual Muscle Testing Left 2 Manual Muscle Testing Right 2 Manual Muscle Testing Anterior 2 Manual Muscle Testing Posterior 2 Muscle Endurance (Seconds) 3 Number of Quick Contractions In 10 9 Seconds Comments Pelvic Floor Comments Superficial PF muscle strength is 3/5 Deep PF muscle strength is 1-2 /5. PT-OP-J Posture/Palpation/Skin Start: 06/27/23 18:29 Freq: Status: Active Protocol: Document 07/07/23 10:38 LRN (Rec: 07/07/23 11:23 LRN [id number]) Posture Evaluation Position Standing Head/C-Spine Posture Forward Head T-Spine Posture Increased Kyphosis L-Spine Posture Decreased Lordosis,Shifted Left Shoulder Posture (L) Rounded,(L) Forward Pelvis Posture Anteriorly Tilted,(L) Iliac Crest Superior Comments Posture Comments Lumbar spine shifted left at L5-S1. PT-OP-K Range of Motion Start: 06/27/23 18:29 Freq: Status: Active Protocol: Document 07/07/23 10:38 LRN (Rec: 07/07/23 11:23 LRN [id number]) Lumbar Spine Range of Motion Lumbar Spine Active Degrees Testing Position Standing Flexion 90 Extension 22 Rotation Left 5 Rotation Right 5 Lateral Flexion Left 18 Lateral Flexion Right 13 Hip Goniometric Range of Motion Hip Right Passive Testing Position Supine Internal Rotation 45 External Rotation 65 Left Passive Testing Position Supine Internal Rotation 40 External Rotation 55 PT-OP-M Strength Start: 06/27/23 18:29 Freq: Status: Active Protocol: Document 07/07/23 10:38 LRN (Rec: 07/07/23 11:23 LRN [id number]) Hip Strength Hip Manual Muscle Testing Right Flexion (L2) 4 Good Abduction 3 Fair Adduction 2- Poor- External Rotation 5 Normal Internal Rotation 5 Normal Comments Strength is 5/5 except as indicated above. Left Flexion (L2) 4+ Good+ Abduction 2 Poor Adduction 2 Poor External Rotation 3 Fair Internal Rotation 5 Normal Comments Strength is 5/5 except as indicated above. PT-OP-Q Treatments Start: 06/27/23 18:29 Freq: Status: Active Protocol: Document 07/24/23 11:22 LRN (Rec: 07/24/23 12:16 LRN [id number]) Therapeutic Exercises Supine Exercises LE Rolll in/out Supine Exercise Name Knees flexed due to LBP Reps/Minutes 5' Comments Pt not tolerated sup position well. Kegel w/breath Supine Exercise Name Kegel w/inhale and hold thru exhale, f/b NL breath w/o Kegel Reps/Minutes 11' Comments Extra time taken to teach pt to do isolated Kegel. Deep Breathing Supine Exercise Name Deep Breathing and PF awareness Equipment Used Pillows layed under pt Reps/Minutes 12' Sitting Exercises Kegel/LE roll in/outs. Reps/Minutes 3' Comments Extra time taken for pt put eye drops in due to PDI eye condition LE Roll in/outs Reps/Minutes 3' Self-Care/Home Management Treatment Education Other Education Reviewed & Discussed Bladder Diary. Discussed fluid time mgmt, decreasing fluids before bed and discussed bladder irritants and expectations with drinking/eating these irritants. Discussed bladder retraining and retraining for urge with opening refrig door or walking into a room. Discussed bladder irritants. Activities Self-Care/Home Management Activities Issued handout for bladder irritants. PT-OP-T Assessment and Plan Start: 06/27/23 18:29 Freq: Status: Active Protocol: Document 07/24/23 11:22 LRN (Rec: 07/24/23 12:16 LRN [id number]) Physical Therapy Assessment Goals Low back pain Impairment Low back pain Impairment LBP rated 3/10, and pt is not able to maintain core rotational stability with LE movements. Short Term Goal (STG) Pt will be educated in proper sit/stand posture and LB mobility exercises. STG Duration 6 wks-08/18/23 [facility] Goal (LTG) Improve core stability/ strength with pt able to walk from inside to outside the house while maintaining urinary continence with walking. LTG Duration 12 wks-09/29/23 Three Impairment Aggrevator urinary incontinence (changes in temperature) Short Term Goal (STG) Pt will be educated in urge deference technique. 07/14/23: Pt educated in urge deference technique STG Duration 1 wk-07/14/23 (07/14/23: MET GOAL) [employer] Goal (LTG) Pt will be able to delay urination until she can sit to void, when walking into a different temperature room in her house. LTG Duration 12 wks-09/29/23 Two Impairment PF deep muscle weakness (2/5) Impairment Endurance hold of 3 secs before starting to fatigue. Short Term Goal (STG) Improve PF endurance with ability to hold PF contraction 5-6 secs. STG Duration 6 wks-08/18/23 [employer] Goal (LTG) Improve PF endurance with ability to hold PF contraction 10 secs and will be able to open her refrigerator door and walk to the bathroom without urinary leakage. LTG Duration 12 wks-09/29/23 One Impairment Pt lacks an independent self care HEP. Short Term Goal (STG) Pt educated in proper transfers to lessen core abdominal pressure. 07/14/23: Pt educated in reduction of intra-abdominal pressure with transfers and ADLs with breathwork/Kegel. STG Duration 6 wks-08/18/23 (07/14/23: MET GOAL) [employer] Goal (LTG) Pt will be independent in a self care HEP for PF strengthening. LTG Duration 12 wks-09/29/23 Assessment Summary Assessment Pt is a 72 yo female who presents with PF weakness (she is able to draw her bladder and rectal tissues upward with a Kegel), rectocele (grade 3) , and cystocele; decreased core/hip strength and mobility . Today the pt reports a few days of no UI, using urge deference technique. Pt not using squatty potty because she tripped on it and won't keep it near her toilet, but is open to putting it in her bathtub and using it when she needs to defecate. Not able to completely discuss bladder irritants today due to time constraint, but will discuss further at next appt if needed . Physical Therapy Plan Frequency and Duration Frequency of Treatment 1x/Week Duration of treatment (weeks) 12 Plan of Care Start Date 07/07/23 Plan of Care End Date 09/29/23 Next Visit Focus/Plan Next Note Type Treatment Note Next Visit Plan Next: Avoid supine due to pt c/o LBP in supine, unless pt use of pillows makes sup tolerable. Assess if pt performing intra-abdominal pressure mgmt w/transfers and ADLs with breathwork/Kegel. Further assess (prone) LBP/ check hip ext. Exers: Kegel (reclined, or sup vs ?on wedge) long holds, without use of substitute muscles, core strengthening ( focus on rotation), normalize hip strength symmetry. Education: proper sit/stand posture and LB mobility exercises. Ex: Bladder retraining for aggrevators (opening fridge & walking into a different temperature room). Manual: Reduce LBP, use of MH found to be helpful. Other Modalities if needed. POC: Pt education, Manual therapy. ?Biofeedback with vaginal sensor. Therapeutic Exercises, Therapeutic Activities, Neuromuscular Reeducation.
--- NOTE | 2023-08-11 12:23 | PT.OTN ---
Current Diagnoses Pain in other specified joint (08/11/23) Low back pain, unspecified (08/11/23) Muscle weakness (generalized) (08/11/23) Stress incontinence (female) (male) (08/11/23) Urge incontinence (08/11/23) Physical Therapy Treatment Note PT-OP-A Visit Information Start: 06/27/23 18:29 Freq: Status: Active Protocol: Document 08/11/23 11:21 LRN (Rec: 08/11/23 12:22 LRN [id number]) Out-Patient Physical Therapy Visit Information Visit Information Visit Type Treatment Note Visit Start Time 11:21 Visit Stop Time 12:02 Visit Number 4 Evaluation Information Evaluation Date 07/07/23 Precautions Precautions Per intake form: LATEX ALLERGY (if on for extended period of time), arthritis, depression, dizziness, hep B, L eye PVD, cannabis smoker. PT-OP-B Current Condition Start: 06/27/23 18:29 Freq: Status: Active Protocol: Document 07/07/23 10:38 LRN (Rec: 07/07/23 11:23 LRN [id number]) Current Condition History of Current Condition Onset Date 1 month worsened Current Complaints Having more urinary leakage History of Current Condition Pt reports having urinary leakage for 10 or more years, but in the past month has had worsening of urinary leakage when walking from inside to outside of house or opening the refridgerator door has to urinate immediately. Has had accupuncture for back pain and for awhile was helping with urgent bladder for one week at a time but last time helped for only a few days. Won't wear urinary pads because doesn't like how it bunches up . Instead of panties wears leggings. Pt reports living independently in bottom 1/2 of daughters house. Prior Treatments and Tests Has done intermittent Kegels, doesn't remember who taught her. Treatment Goals Patient/Caregiver Goals Pt goal is to be able to improve maintain urinary continence with opening refig door, walking into a different temp room, or going from inside to outside the house. Personal Factors Other Personal Factors That May Effect LATEX ALLERGY (if on for Therapy/Recovery extended period of time), arthritis, depression, dizziness. PT-OP-C Subjective Start: 06/27/23 18:29 Freq: Status: Active Protocol: Document 08/11/23 11:21 LRN (Rec: 08/11/23 12:22 LRN [id number]) OP-PT Subjective Patient Comments Patient Comments States she exercised a lot and has more good luck doing the Kegels and is more aware of being able to exercise. States was leaking less volume when visiting her mother. PT-OP-I Pelvic Floor Start: 06/27/23 18:29 Freq: Status: Active Protocol: Document 07/07/23 10:38 LRN (Rec: 07/07/23 11:23 LRN [id number]) Pelvic Floor Assessment Urine Urinary Symptoms Falling Out Feeling/Heavy Other Urinary Symptoms Several years ago felt bladder falling out of vagina, couldn 't afford to have it fixed. Leakage Size Large Leaks Per Day 3-5 Voiding Frequency 6-8x/day Nocturia 1-2x Pads Used In 24 Hours Doesn't use pads. Bowel Other Bowel Symptoms Denies bowel symptoms. Notes normal stool Bowel Movement Frequency 1-2x/day Pelvic Clock Pelvic Clock Other Pelvic Clock 6, tenderness externally. Prolapse Cystocele Grade 2 Urethrocele Grade 3 Perineal Descent Bearing Present Contraction Ability Voluntary Contraction Moderate Voluntary Relaxation Moderate Manual Muscle Testing Left 2 Manual Muscle Testing Right 2 Manual Muscle Testing Anterior 2 Manual Muscle Testing Posterior 2 Muscle Endurance (Seconds) 3 Number of Quick Contractions In 10 9 Seconds Comments Pelvic Floor Comments Superficial PF muscle strength is 3/5 Deep PF muscle strength is 1-2 /5. PT-OP-J Posture/Palpation/Skin Start: 06/27/23 18:29 Freq: Status: Active Protocol: Document 07/07/23 10:38 LRN (Rec: 07/07/23 11:23 LRN [id number]) Posture Evaluation Position Standing Head/C-Spine Posture Forward Head T-Spine Posture Increased Kyphosis L-Spine Posture Decreased Lordosis,Shifted Left Shoulder Posture (L) Rounded,(L) Forward Pelvis Posture Anteriorly Tilted,(L) Iliac Crest Superior Comments Posture Comments Lumbar spine shifted left at L5-S1. PT-OP-K Range of Motion Start: 06/27/23 18:29 Freq: Status: Active Protocol: Document 07/07/23 10:38 LRN (Rec: 07/07/23 11:23 LRN [id number]) Lumbar Spine Range of Motion Lumbar Spine Active Degrees Testing Position Standing Flexion 90 Extension 22 Rotation Left 5 Rotation Right 5 Lateral Flexion Left 18 Lateral Flexion Right 13 Hip Goniometric Range of Motion Hip Right Passive Testing Position Supine Internal Rotation 45 External Rotation 65 Left Passive Testing Position Supine Internal Rotation 40 External Rotation 55 PT-OP-M Strength Start: 06/27/23 18:29 Freq: Status: Active Protocol: Document 07/07/23 10:38 LRN (Rec: 07/07/23 11:23 LRN [id number]) Hip Strength Hip Manual Muscle Testing Right Flexion (L2) 4 Good Abduction 3 Fair Adduction 2- Poor- External Rotation 5 Normal Internal Rotation 5 Normal Comments Strength is 5/5 except as indicated above. Left Flexion (L2) 4+ Good+ Abduction 2 Poor Adduction 2 Poor External Rotation 3 Fair Internal Rotation 5 Normal Comments Strength is 5/5 except as indicated above. PT-OP-Q Treatments Start: 06/27/23 18:29 Freq: Status: Active Protocol: Document 08/11/23 11:21 LRN (Rec: 08/11/23 12:22 LRN [id number]) Therapeutic Exercises Sitting Exercises Kegle/Ball squeeze Reps/Minutes 10 SH x 4 Comments Pt cued to breath during ex. Kegel/LE roll in/outs. Reps/Minutes 2' Comments Extra time taken for pt put eye drops in due to PDI eye condition LE Roll in/outs Reps/Minutes 1' Deep Breathing Sitting Exercise Name Deep breathing for 5 sec in/ out Reps/Minutes 4' Comments Cuing to move from abdomen and to keep chest still. Therapeutic Activity Therapeutic Activity Transfers w/Breath/Kegel Name Sit<>Stand coordinating w/ breathwork/Kegel Reps/Minutes 4' Comments Constant cuing needed for Kegel Transfers w/Breath Name sit<>stand coordinating w/ breathwork Reps/Minutes 5' Comments Constant cuing needed for exhale with transitions. Self-Care/Home Management Treatment Education Other Education Educated and discussed at length: Proper Posture: The [employer] to Safe Movement and Proper Posturing in sitting to avoid slumping and in different types of chairs ( extended conversation was on support locations of of different chairs that she needed to be aware of because of her taller stature) Education: proper sit/stand posture PT-OP-T Assessment and Plan Start: 06/27/23 18:29 Freq: Status: Active Protocol: Document 08/11/23 11:21 LRN (Rec: 08/11/23 12:22 LR [id number]) Physical Therapy Assessment Goals Low back pain Impairment Low back pain Impairment LBP rated 3/10, and pt is not able to maintain core rotational stability with LE movements. Short Term Goal (STG) Pt will be educated in proper sit/stand posture and LB mobility exercises. 08/11/23: Educated pt in proper sit/stand posture STG Duration 6 wks-08/18/23 progressed (need educ LB mobility exercises) Windmill Mechanic Goal (LTG) Improve core stability/ strength with pt able to walk from inside to outside the house while maintaining urinary continence with walking. LTG Duration 12 wks-09/29/23 Three Impairment Aggrevator urinary incontinence (changes in temperature) Short Term Goal (STG) Pt will be educated in urge deference technique. 07/14/23: Pt educated in urge deference technique STG Duration 1 wk-07/14/23 (07/14/23: MET GOAL) Windmill Mechanic Goal (LTG) Pt will be able to delay urination until she can sit to void, when walking into a different temperature room in her house. LTG Duration 12 wks-09/29/23 Two Impairment PF deep muscle weakness (2/5) Impairment Endurance hold of 3 secs before starting to fatigue. Short Term Goal (STG) Improve PF endurance with ability to hold PF contraction 5-6 secs. STG Duration 6 wks-08/18/23 Retirement Goal (LTG) Improve PF endurance with ability to hold PF contraction 10 secs and will be able to open her refrigerator door and walk to the bathroom without urinary leakage. LTG Duration 12 wks-09/29/23 One Impairment Pt lacks an independent self care HEP. Short Term Goal (STG) Pt educated in proper transfers to lessen core abdominal pressure. 07/14/23: Pt educated in reduction of intra-abdominal pressure with transfers and ADLs with breathwork/Kegel. STG Duration 6 wks-08/18/23 (07/14/23: MET GOAL) Retirement Goal (LTG) Pt will be independent in a self care HEP for PF strengthening. 08/11/23: I/S pt in Kegel/ ball squeeze & reviewed LE roll in/out with and without Kegel. LTG Duration 12 wks-09/29/23 progressed 08/11/23 Assessment Summary Assessment Pt is a 72 yo female who presents with PF weakness (she is able to draw her bladder and rectal tissues upward with a Kegel), rectocele (grade 3) , and cystocele; decreased core/hip strength and mobility . Today pt requests NO supine or partially reclined, wants ex in sitting. Urinary leakage amunt is reportedly less. Good core pressure mgmt with transfers. Physical Therapy Plan Frequency and Duration Frequency of Treatment 1x/Week Duration of treatment (weeks) 12 Plan of Care Start Date 07/07/23 Plan of Care End Date 09/29/23 Next Visit Focus/Plan Next Note Type Treatment Note Next Visit Plan Next: Treatments only in sitting due to LBP. Further assess (prone) LBP/check hip ext. Issue HEP: Sitting: LE roll in/outs (specify sitting) & Kegel/ball squeezes . Exers: Kegel (reclined, or sup vs ?on wedge) long holds, without use of substitute muscles, core strengthening ( focus on rotation), normalize hip strength symmetry. Ex: Bladder retraining for aggrevators (opening fridge & walking into a different temperature room). Ex: LB mobility exercises. Manual: Reduce LBP, use of MH found to be helpful. Other Modalities if needed. POC: Pt education, Manual therapy. ?Biofeedback with vaginal sensor. Therapeutic Exercises, Therapeutic Activities, Neuromuscular Reeducation.
--- NOTE | 2023-09-11 16:28 | PT.OTN ---
Current Diagnoses Pain in other specified joint (09/11/23) Low back pain, unspecified (09/11/23) Muscle weakness (generalized) (09/11/23) Stress incontinence (female) (male) (09/11/23) Urge incontinence (09/11/23) Physical Therapy Treatment Note PT-OP-A Visit Information Start: 06/27/23 18:29 Freq: Status: Active Protocol: Document 09/11/23 09:53 LRN (Rec: 09/11/23 10:40 LRN [id number]) Out-Patient Physical Therapy Visit Information Visit Information Visit Type Treatment Note Visit Start Time 09:53 Visit Stop Time 10:38 Visit Number 5 Evaluation Information Evaluation Date 07/07/23 Precautions Precautions Per intake form: LATEX ALLERGY (if on for extended period of time), arthritis, depression, dizziness, hep B, L eye PVD, cannabis smoker. PT-OP-B Current Condition Start: 06/27/23 18:29 Freq: Status: Active Protocol: Document 07/07/23 10:38 LRN (Rec: 07/07/23 11:23 LRN [id number]) Current Condition History of Current Condition Onset Date 1 month worsened Current Complaints Having more urinary leakage History of Current Condition Pt reports having urinary leakage for 10 or more years, but in the past month has had worsening of urinary leakage when walking from inside to outside of house or opening the refridgerator door has to urinate immediately. Has had accupuncture for back pain and for awhile was helping with urgent bladder for one week at a time but last time helped for only a few days. Won't wear urinary pads because doesn't like how it bunches up . Instead of panties wears leggings. Pt reports living independently in bottom 1/2 of daughters house. Prior Treatments and Tests Has done intermittent Kegels, doesn't remember who taught her. Treatment Goals Patient/Caregiver Goals Pt goal is to be able to improve maintain urinary continence with opening refig door, walking into a different temp room, or going from inside to outside the house. Personal Factors Other Personal Factors That May Effect LATEX ALLERGY (if on for Therapy/Recovery extended period of time), arthritis, depression, dizziness. PT-OP-C Subjective Start: 06/27/23 18:29 Freq: Status: Active Protocol: Document 09/11/23 09:53 LRN (Rec: 09/11/23 10:40 LRN [id number]) OP-PT Subjective Patient Comments Patient Comments Haven't been doing the ex's because other things are going on. Had to cx last appts because of taking care of grandkids. Had sat on squatty potty for 20 minutes while on phone, so had back trouble. Accupuncturist found the R hip ms very tense. Pt requests printed information to review and go back. Pt requests no to prone assessment of LB & hip ext. Can't lift anything > 15# because can feel the bearing down. PT-OP-I Pelvic Floor Start: 06/27/23 18:29 Freq: Status: Active Protocol: Document 07/07/23 10:38 LRN (Rec: 07/07/23 11:23 LRN [id number]) Pelvic Floor Assessment Urine Urinary Symptoms Falling Out Feeling/Heavy Other Urinary Symptoms Several years ago felt bladder falling out of vagina, couldn 't afford to have it fixed. Leakage Size Large Leaks Per Day 3-5 Voiding Frequency 6-8x/day Nocturia 1-2x Pads Used In 24 Hours Doesn't use pads. Bowel Other Bowel Symptoms Denies bowel symptoms. Notes normal stool Bowel Movement Frequency 1-2x/day Pelvic Clock Pelvic Clock Other Pelvic Clock 6, tenderness externally. Prolapse Cystocele Grade 2 Urethrocele Grade 3 Perineal Descent Bearing Present Contraction Ability Voluntary Contraction Moderate Voluntary Relaxation Moderate Manual Muscle Testing Left 2 Manual Muscle Testing Right 2 Manual Muscle Testing Anterior 2 Manual Muscle Testing Posterior 2 Muscle Endurance (Seconds) 3 Number of Quick Contractions In 10 9 Seconds Comments Pelvic Floor Comments Superficial PF muscle strength is 3/5 Deep PF muscle strength is 1-2 /5. PT-OP-J Posture/Palpation/Skin Start: 06/27/23 18:29 Freq: Status: Active Protocol: Document 07/07/23 10:38 LRN (Rec: 07/07/23 11:23 LRN [id number]) Posture Evaluation Position Standing Head/C-Spine Posture Forward Head T-Spine Posture Increased Kyphosis L-Spine Posture Decreased Lordosis,Shifted Left Shoulder Posture (L) Rounded,(L) Forward Pelvis Posture Anteriorly Tilted,(L) Iliac Crest Superior Comments Posture Comments Lumbar spine shifted left at L5-S1. PT-OP-K Range of Motion Start: 06/27/23 18:29 Freq: Status: Active Protocol: Document 07/07/23 10:38 LRN (Rec: 07/07/23 11:23 LRN [id number]) Lumbar Spine Range of Motion Lumbar Spine Active Degrees Testing Position Standing Flexion 90 Extension 22 Rotation Left 5 Rotation Right 5 Lateral Flexion Left 18 Lateral Flexion Right 13 Hip Goniometric Range of Motion Hip Right Passive Testing Position Supine Internal Rotation 45 External Rotation 65 Left Passive Testing Position Supine Internal Rotation 40 External Rotation 55 PT-OP-M Strength Start: 06/27/23 18:29 Freq: Status: Active Protocol: Document 07/07/23 10:38 LRN (Rec: 07/07/23 11:23 LRN [id number]) Hip Strength Hip Manual Muscle Testing Right Flexion (L2) 4 Good Abduction 3 Fair Adduction 2- Poor- External Rotation 5 Normal Internal Rotation 5 Normal Comments Strength is 5/5 except as indicated above. Left Flexion (L2) 4+ Good+ Abduction 2 Poor Adduction 2 Poor External Rotation 3 Fair Internal Rotation 5 Normal Comments Strength is 5/5 except as indicated above. PT-OP-Q Treatments Start: 06/27/23 18:29 Freq: Status: Active Protocol: Document 09/11/23 09:53 LRN (Rec: 09/11/23 10:40 LRN [id number]) Therapeutic Exercises Prone Exercises Hip Ext Side bilateral Comments MMT taken Sitting Exercises Hip ER/pillow squeeze Equipment Used Lev 2 TB Reps/Minutes 3' Comments Issued Lev 2 TB and issued HEP > Partial squat/sit Sitting Exercise Name Partial sit/squat hanging onto sink for gluteal strengthening Reps/Minutes 9' Comments Extra time taken for pt to becoming aware of gluteals tightening. Sit<>stand Sitting Exercise Name coordinating w/breathing Reps/Minutes 10x (21') Comments Much extra time taken for pt to gain awareness of gluteal tightening Self-Care/Home Management Treatment Activities Self-Care/Home Management Activities Issued & reviewed HEP: Sitting jumana BKFO & pillow squeeze. Lev 2 TB issued. PT-OP-T Assessment and Plan Start: 06/27/23 18:29 Freq: Status: Active Protocol: Document 09/11/23 09:53 LRN (Rec: 09/11/23 10:40 LRN [id number]) Physical Therapy Assessment Goals Low back pain Impairment Low back pain Impairment LBP rated 3/10, and pt is not able to maintain core rotational stability with LE movements. Short Term Goal (STG) Pt will be educated in proper sit/stand posture and LB mobility exercises. 08/11/23: Educated pt in proper sit/stand posture STG Duration 6 wks-08/18/23 (09/11/23: NOT MET GOAL, needed educ LB mobility exercises) Correction Goal (LTG) Improve core stability/ strength with pt able to walk from inside to outside the house while maintaining urinary continence with walking. 09/11/23: Several days ago reverted back to urinary leaking with temp change. Has been able to delay urination. 2 wks ago was not able to delay. Now wearing leggings again, 1/2 the time can delay urination.. LTG Duration 12 wks-09/29/23 (09/08/23: NOT MET GOAL) Three Impairment Aggrevator urinary incontinence (changes in temperature) Short Term Goal (STG) Pt will be educated in urge deference technique. 07/14/23: Pt educated in urge deference technique STG Duration 1 wk-07/14/23 (07/14/23: MET GOAL) Correction Goal (LTG) Pt will be able to delay urination until she can sit to void, when walking into a different temperature room in her house. 09/11/23: Several days ago reverted back to urinary leaking with temp change. Has been able to delay urination. 2 wks ago was not able to delay. Now wearing leggings again because no 1/2 the time can delay urination. LTG Duration 12 wks-09/29/23 (09/08/23: NOT MET GOAL) Two Impairment PF deep muscle weakness (2/5) Impairment Endurance hold of 3 secs before starting to fatigue. Short Term Goal (STG) Improve PF endurance with ability to hold PF contraction 5-6 secs. 09/11/23: Pt feels she is able to hold her PF contraction 10 secs. STG Duration 6 wks-08/18/23 (09/08/23: NOT MET GOAL) Correction Goal (LTG) Improve PF endurance with ability to hold PF contraction 10 secs and will be able to open her refrigerator door and walk to the bathroom without urinary leakage. 09/11/23: Pt feels she is able to hold her PF contraction 10 secs. LTG Duration 12 wks-09/29/23 (09/08/23: NOT MET GOAL) One Impairment Pt lacks an independent self care HEP. Short Term Goal (STG) Pt educated in proper transfers to lessen core abdominal pressure. 07/14/23: Pt educated in reduction of intra-abdominal pressure with transfers and ADLs with breathwork/Kegel. STG Duration 6 wks-08/18/23 (07/14/23: MET GOAL) Correction Goal (LTG) Pt will be independent in a self care HEP for PF strengthening. 08/11/23: I/S pt in Kegel/ ball squeeze & reviewed LE roll in/out with and without Kegel. 09/11/23: HEP: Sitting Kegel /ball squeeze & Kegel/hip jumana BKFO LTG Duration 12 wks-09/29/23 (09/11/23: MET GOAL for current status) Assessment Summary Assessment Pt is a 72 yo female who presents with PF weakness (she is able to draw her bladder and rectal tissues upward with a Kegel), rectocele (grade 3) , and cystocele; decreased core/hip strength and mobility . Today pt requests NO supine or partially reclined ex's, wants ex in sitting. Extra time taken each time for discussion of each exercise. The pt appears to have an understanding of her HEP, but due to time constraint and the extra time taken with each exercise, seated pillow squeeze was not reviewed. Pt has previously performed seated pillow squeeze, therefore is expected to not have difficulty following directions for the exercise. Pt did not meet all her goals due to early discharge at pt's request due to too much uncertainty of her summer, making committment to therapy difficult. Physical Therapy Plan Discharge Physical Therapy Discharge Reasons Patient Request Discharge Comments Pt would like to come back after the summer when she will have more time to focus on therapy. I feel this would be appropriate. Pt has HEP for now to address her progress thus far.
== END 2023-10-10 11:33 ==
LOC: PHYS 09:45
PROVIDERS: Family Provider Nurse Practitioner Family; PCP Registered Nurse Diabetes Educator; Referring Provider Registered Nurse Diabetes Educator; Visit Provider Registered Nurse Diabetes Educator
DX: N39.3 Stress incontinence (female) (male) (principal); N39.41 Urge incontinence; M54.50 Low back pain, unspecified; M62.81 Muscle weakness (generalized); M25.59 Pain in other specified joint
CPT/HCPCS: 97110; 97162; 97530; 97535

== ENCOUNTER → 2024-10-28 07:54 | Outpatient (CLI) | payer MEDICARE, SELFPAY ==
[2024-10-28 09:03] LABS: Hematocrit 37.4 % (36-46); Hemoglobin 12.4 g/dL (12.0-16.0); Mean Corpuscular HGB Conc 33.2 % (30-36); Mean Corpuscular Hemoglobin 31.9 PG (26-34); Mean Corpuscular Volume 96.3 fL (80-100); Platelet Count 222 X10^3/uL (150-400)
[2024-10-28 09:23] LABS: Alanine Aminotransferase 20 IU/L (<35); Albumin 4.1 g/dL (3.5-5.0); Albumin Globulin Ratio 1.5 (1.0-2.8); Alkaline Phosphatase 71 U/L (38-126); Blood Urea Nitrogen 21 mg/dL (7-17); Calcium 9.1 mg/dL (8.4-10.2); Carbon Dioxide 28 mmol/L (22-32); Chloride 105 mmol/L (98-107); Cholesterol 207 mg/dL (140-199); Estimated Glomerular Filt Rate 58 mL/min (>60); Globulin 2.7 g/dL (1.7-4.1); Glucose 89 mg/dL (70-99); HDL Cholesterol 56 mg/dL (40-60); HEMOLYSIS < 15 (0-50); Potassium 4.8 mmol/L (3.4-5.1); Sodium 140 mmol/L (137-145); Total Protein 6.8 g/dL (6.3-8.2); Triglycerides 54 mg/dL (35-150)
[2024-10-28 09:28] LABS: Hemoglobin A1C% w Est Avg Glu 5.6 % (4.0-6.0)
== END ==
PROVIDERS: Family Provider Nurse Practitioner Family; PCP Registered Nurse Diabetes Educator; Referring Provider Registered Nurse Diabetes Educator; Visit Provider Registered Nurse Diabetes Educator
DX: R73.01 Impaired fasting glucose (principal); I10 Essential (primary) hypertension; E78.5 Hyperlipidemia, unspecified
CPT/HCPCS: 36415; 80053; 80061; 83036; 85027

== ENCOUNTER → 2024-12-17 12:57 | Outpatient (CLI) | payer MEDICARE, SELFPAY ==
[2024-12-17 13:19] LABS: Appearance Urine UA CLEAR; Bilirubin Urine UA NEGATIVE (NEGATIVE); Color Urine UA YELLOW; Glucose Urine UA NEGATIVE (Negative); Ketones Urine UA TRACE (NEGATIVE); Leukocyte Esterase Urine UA NEGATIVE (NEGATIVE); Nitrite Urine UA NEGATIVE (Negative); Occult Blood Urine UA NEGATIVE (Negative); Protein Urine UA NEGATIVE (Negative); Specific Gravity Urine UA 1.010 (1.000-1.035); Urobilinogen Urine UA 0.2 E.U./dL (0.2)
[2024-12-17 13:20] LABS: pH Urine UA 6.0 (4.5-8.0)
[2024-12-17 13:49] LABS: Culture Indicated Urine Cult Not Indicated
== END ==
PROVIDERS: PCP Registered Nurse Diabetes Educator; Referring Provider Obstetrics & Gynecology; Visit Provider Obstetrics & Gynecology
DX: R30.0 Dysuria (principal)
CPT/HCPCS: 81001

== ENCOUNTER → 2025-01-16 16:26 | Outpatient (CLI) | payer MEDICARE, SELFPAY ==
[2025-01-16 18:34] LABS: Add Manual Diff / Slide Review NO; Hematocrit 38.0 % (36-46); Hemoglobin 12.9 g/dL (12.0-16.0); Lymphocytes Absolute Auto 1500 /uL (1100-4500); Mean Corpuscular HGB Conc 33.9 % (30-36); Mean Corpuscular Hemoglobin 31.9 PG (26-34); Mean Corpuscular Volume 94.1 fL (80-100); Platelet Count 252 X10^3/uL (150-400)
[2025-01-16 18:49] LABS: Alanine Aminotransferase 17 IU/L (<35); Albumin 4.5 g/dL (3.5-5.0); Albumin Globulin Ratio 1.5 (1.0-2.8); Alkaline Phosphatase 73 U/L (38-126); Blood Urea Nitrogen 15 mg/dL (7-17); Calcium 9.5 mg/dL (8.4-10.2); Carbon Dioxide 25 mmol/L (22-32); Chloride 103 mmol/L (98-107); Estimated Glomerular Filt Rate 58 mL/min (>60); Globulin 3.0 g/dL (1.7-4.1); Glucose 103 mg/dL (70-99); HEMOLYSIS < 15 (0-50); Potassium 4.0 mmol/L (3.4-5.1); Sodium 140 mmol/L (137-145); Total Protein 7.5 g/dL (6.3-8.2)
== END ==
PROVIDERS: PCP Registered Nurse Diabetes Educator; Referring Provider Family Medicine; Visit Provider Family Medicine
DX: I10 Essential (primary) hypertension (principal); G89.29 Other chronic pain; N18.31 Chronic kidney disease, stage 3a; M54.50 Low back pain, unspecified
CPT/HCPCS: 36415; 80053; 85025

== ENCOUNTER → 2025-01-17 09:20 | Outpatient (CLI) | payer MEDICARE, SELFPAY ==
[2025-01-17 09:45] LABS: Appearance Urine UA CLEAR; Bilirubin Urine UA NEGATIVE (NEGATIVE); Color Urine UA YELLOW; Glucose Urine UA NEGATIVE (Negative); Ketones Urine UA NEGATIVE (NEGATIVE); Leukocyte Esterase Urine UA NEGATIVE (NEGATIVE); Nitrite Urine UA NEGATIVE (Negative); Occult Blood Urine UA NEGATIVE (Negative); Protein Urine UA NEGATIVE (Negative); Specific Gravity Urine UA 1.025 (1.000-1.035); Urobilinogen Urine UA 0.2 E.U./dL (0.2)
[2025-01-17 09:48] LABS: Culture Indicated Urine Cult Not Indicated; pH Urine UA 6.0 (4.5-8.0)
== END ==
PROVIDERS: PCP Registered Nurse Diabetes Educator; Referring Provider Family Medicine; Visit Provider Family Medicine
DX: I10 Essential (primary) hypertension (principal); G89.29 Other chronic pain; N18.31 Chronic kidney disease, stage 3a
CPT/HCPCS: 81001

== ENCOUNTER → 2025-01-31 13:44 | Outpatient (CLI) | payer MEDICARE, SELFPAY ==
--- NOTE | 2025-01-31 13:46 | DI.RAD.S_ITS ---
PROCEDURE: XR DEXA AXIAL SKELETON
== END ==
LOC: RAD 13:44
PROVIDERS: PCP Registered Nurse Diabetes Educator; Referring Provider Registered Nurse Diabetes Educator; Visit Provider Registered Nurse Diabetes Educator
DX: M85.852 Other specified disorders of bone density and structure, left thigh (principal); Z78.0 Asymptomatic menopausal state
CPT/HCPCS: 77080

== ENCOUNTER → 2025-02-26 14:35 | Outpatient (CLI) | payer MEDICARE, SELFPAY ==
--- NOTE | 2025-02-26 14:36 | DI.MG.S_ITS ---
MM screening mammo BI: 02/26/2025. BI-RADS: 1 CLINICAL: 74-year old female for bilateral screening mammogram. Tyrer-Cuzick lifetime risk of 2.9%. No personal or first-degree family history of breast cancer. PRIOR EXAMS: This is a baseline mammogram. MAMMOGRAPHY TECHNIQUE: 2D and 3D (tomosynthesis) digital mammographic views obtained, with additional images as needed for full coverage. Current study was also evaluated with a Computer Aided Detection (CAD) system. DENSITY B. There are scattered areas of fibroglandular density. MAMMOGRAPHY FINDINGS Bilateral: No suspicious mass, asymmetry, microcalcification, or other abnormality seen. IMPRESSION: * No evidence of malignancy. RECOMMENDATIONS Bilateral * Annual screening mammography. OVERALL ASSESSMENT CATEGORY BI-RADS-1: Negative. The [employer] recommends annual screening mammography beginning at age 40 for women with average risk of breast cancer. ELECTRONICALLY SIGNED: Dakota Carrillo M.D. on 02/27/2025 at 12:24:51 PM PT Interpreting Station ID: [id number]
== END ==
PROVIDERS: PCP Registered Nurse Diabetes Educator; Referring Provider Registered Nurse Diabetes Educator; Visit Provider Registered Nurse Diabetes Educator
DX: Z12.31 Encounter for screening mammogram for malignant neoplasm of breast (principal)
CPT/HCPCS: 77063; 77067

== ENCOUNTER → 2025-03-01 14:32 | Outpatient (CLI) | payer MEDICARE, SELFPAY ==
--- NOTE | 2025-03-01 14:33 | DI.CT.S_ITS ---
PROCEDURE: CT CHEST WO CON INDICATIONS: reeval, f/u on ground glass on outside CT 12/31/2024 TECHNIQUE: Noncontrast 5 mm thick sections acquired from the pulmonary apices to the posterior costophrenic angles. 1 mm lung window, 5 mm thick coronal and sagittal and 7 mm axial MIP reformats were then acquired. For radiation dose reduction, the following was used: automated exposure control, adjustment of mA and/or kV according to patient size. COMPARISON: Outside Facility, RG, CT CALCIUM SCORING, 12/31/2024, 13:04. FINDINGS: Image quality: Diagnostic. Lower Neck: No enlarged lymph nodes. Thyroid: No thyroid nodules which require sonographic follow up, per consensus guidelines. Axillae: No enlarged lymph nodes. Chest Wall: Asymmetric breast glandular tissue more prominent on the left than on the right. No concerning mass lesions seen on mammogram performed 02/26/2025. Otherwise unremarkable. Bones: Multilevel degenerative disc disease and facet arthopathy noted. Incidental T6 hemangioma. Lungs and Pleura: No pneumothorax or pleural effusions. No concerning lung mass or nodule. Moderate bronchial wall thickening. As before, extensive areas of peribronchovascular ground-glass opacities are noted. Overall appearance is similar to the prior study. Heart: Heart size is normal. No pericardial effusion. Coronary artery calcifications are noted. Thoracic Vessels: The aorta and pulmonary arteries demonstrate normal size. Calcifications are noted in the thoracic arch. Mediastinum and Tracy: No enlarged lymph nodes. Esophagus: No wall thickening. No hiatal hernia. Upper Abdomen: Visualized upper abdomen solid organs and bowel loops appear normal. IMPRESSION: Persistent extensive areas of peribronchovascular ground-glass opacities affecting all lobes of both lungs. Overall appearance is similar to the prior study. Imaging findings remain concerning for an infectious or inflammatory process. Moderate bronchial wall thickening could represent superimposed bronchitis or reactive airways disease. No concerning lung mass or nodule. No pneumothorax or effusion. Dictated by: Deja Nicole M.D. on 03/04/2025 at 15:38 Approved by: Deja Nicole M.D. on 03/04/2025 at 15:47
== END ==
LOC: CT 14:32
PROVIDERS: PCP Registered Nurse Diabetes Educator; Referring Provider Registered Nurse Diabetes Educator; Visit Provider Registered Nurse Diabetes Educator
DX: R93.89 Abnormal findings on diagnostic imaging of other specified body structures (principal); I25.10 Atherosclerotic heart disease of native coronary artery without angina pectoris
CPT/HCPCS: 71250

== ENCOUNTER → 2025-03-17 13:10 | Outpatient (CLI) | payer MEDICARE, SELFPAY | PROVIDERS: PCP Registered Nurse Diabetes Educator; Referring Provider Registered Nurse Diabetes Educator; Visit Provider Registered Nurse Diabetes Educator | DX: J98.4 Other disorders of lung (principal); R91.8 Other nonspecific abnormal finding of lung field; R93.89 Abnormal findings on diagnostic imaging of other specified body structures; D89.89 Other specified disorders involving the immune mechanism, not elsewhere classified | CPT/HCPCS: 36415; 86038; 86200; 86235; 86430 ==

== ENCOUNTER → 2025-03-24 13:12 | Outpatient (CLI) | payer MEDICARE, SELFPAY | LOC: RESP 13:12 | PROVIDERS: PCP Registered Nurse Diabetes Educator; Referring Provider Registered Nurse Diabetes Educator; Visit Provider Registered Nurse Diabetes Educator | DX: R91.8 Other nonspecific abnormal finding of lung field (principal); F17.210 Nicotine dependence, cigarettes, uncomplicated; R94.2 Abnormal results of pulmonary function studies | CPT/HCPCS: 94060; 94618; 94726; 94729 ==